=== PATIENT | female | born 1995 | race Caucasian/White ===

== ENCOUNTER 2016-07-24 14:16 | Emergency (ER) | payer OTHER ==
[~2016-07-24] VITALS: Ht 154.9 cm; Wt 61.0 kg
[~2016-07-24 14:16] MED LIST: ACYC800T57 PO; IBUP-1542 PO
[2016-07-24 14:30] VITALS: Ht 154.9 cm; Wt 61.0 kg
[2016-07-24] MEDS ORDERED: METO10TA92 PO (16:39)
--- NOTE | 2016-07-24 16:47 | ERD ---
ER Documentation Chief Complaint Date/Time DATE: 07/24/16 TIME: 16:44 Chief Complaint vomiting today HPI 21-year-old female who is approximately 3 months is complaining of vomiting since this morning. Patient stated that she had successful vomiting today, last episode was about 4 hours ago. She has frequent nausea vomiting during her , was given prescription of antinausea medications but does not remember the name. Patient stated the medication had not helped, and she did not take any today. Patient also complaining of on-and-off dysuria for the last 1 month. She has slight suprapubic pressure and dysuria today. Denies fever or chills. Denies abdominal pain or diarrhea. Denies vaginal bleeding. Patient is , RONEY 01/05/2017. ROS All systems reviewed and are negative except as per history of present illness. Medications Home Meds Active Scripts Metoclopramide* (Reglan*) 10 Mg Tablet, 10 MG PO Q6 Y for NAUSEA AND/OR VOMITING , #10 TAB Prov:GURPREET BROWN [employer] 07/24/16 Ibuprofen* (Motrin*) 600 Mg Tab, 600 MG PO Q6H Y for PAIN AND OR ELEVATED TEMP, #30 TAB Prov:LAVONNE WISEMAN MD 05/06/15 Acyclovir* (Zovirax*) 800 Mg Tablet, 800 MG PO 5 TIMES DAILY for 7 Days, TAB Prov:LAVONNE WISEMAN MD 05/06/15 Allergies Allergies: Coded Allergies: No Known Allergy (Unverified , 10/09/14) PMhx/Soc Medical and Surgical Hx: pt denies Medical Hx History of Surgery: No Anesthesia Reaction: No Hx Neurological Disorder: No Hx Respiratory Disorders: No Hx Cardiac Disorders: No Hx Psychiatric Problems: No Hx Miscellaneous Medical Probl: No Hx Alcohol Use: No Hx Substance Use: No Hx Tobacco Use: No Physical Exam Vitals Vital Signs Date Time Temp Pulse Resp B/P Pulse Ox O2 Delivery O2 Flow Rate FiO2 07/24/16 14:30 99.7 113 18 113/64 98 Physical Exam General: Well-developed, well-nourished, conscious and coherent, in no distress Skin: Warm and dry without rash, good texture and turgor Head: Normocephalic without evidence of trauma Eyes: Sclera and conjunctivae normal; pupils equal, round, and reactive to light; extraocular movements are intact Neck: Supple without meningismus or adenopathy. Carotids are equal. Trachea midline. No bruits or JVD Chest: Normal AP diameter. Good expansion without retractions. Nontender. Lungs are clear to auscultate bilaterally with good tidal volume Heart: Regular rate and rhythm. No murmur, rub, or gallops heard Abdomen: Soft and nontender without masses, guarding, or rebound. Bowel sounds are active. No hepatosplenomegaly Back: Without spinal or CVA tenderness Pelvis: Nontender to palpation and stable to compression Extremities: Full range of motion. Good strength bilaterally. No clubbing, cyanosis, or edema. Peripheral pulses are intact. Sensation intact Neuro: Alert and oriented 4, GCS 15. Cranial nerves grossly intact. Motor and sensory exams nonfocal. Moves all extremities. Speech clear. Gait normal Results 24 hrs Laboratory Tests Test 07/24/16 17:06 Bedside Urine pH (LAB) 6.0 Bedside Urine Protein (LAB) Trace Bedside Urine Glucose (UA) Negative Bedside Urine Ketones (LAB) 4+ Bedside Urine Blood Negative Bedside Urine Nitrite (LAB) Negative Bedside Urine Leukocyte Esterase (L Negative Procedures/MDM Well-appearing 21-year-old female who is approximately 3 months is complaining of nausea vomiting since this morning. Her last episode of vomiting was 4 hours ago, she is able to maintain p.o. fluid challenge. I feel patient at this time can be managed outpatient. She reports that the antinausea medication given to her by her PCP did not work, I suspect that she was given prescription of Zofran, I will give her a prescription of Reglan to help with her nausea vomiting. Patient advised to increase fluid intake I home. Patient also reports intermittent dysuria for the past 1 month. Urine dip is negative for leukocyte or nitrite, negative for urinary tract infection. She does have 4+ ketones and trace protein, likely due to dehydration. Again I emphasized importance of p.o. fluid intake with the patient. Patient appears well, stable for discharge and outpatient management. Medical decision making shared with patient and family. Education provided to patient and family. Patient and family expressed understanding of the plan. Medications on discharge: Reglan. Follow-up: Primary care provider in 2-3 days or return to ED if worse. Departure Diagnosis: Primary Impression: Vomiting during Condition: Good Patient Instructions: Hyperemesis Gravidarum Referrals: COMMUNITY CLINICS YOU HAVE RECEIVED A MEDICAL SCREENING EXAM AND THE RESULTS INDICATE THAT YOU DO NOT HAVE A CONDITION THAT REQUIRES URGENT TREATMENT IN THE EMERGENCY DEPARTMENT. FURTHER EVALUATION AND TREATMENT OF YOUR CONDITION CAN WAIT UNTIL YOU ARE SEEN IN YOUR DOCTORS OFFICE WITHIN THE NEXT 1-2 DAYS. IT IS YOUR RESPONSIBILITY TO MAKE AN APPOINTMENT FOR FOLOW-UP CARE. IF YOU HAVE A PRIMARY DOCTOR --you should call your primary doctor and schedule an appointment IF YOU DO NOT HAVE A PRIMARY DOCTOR YOU CAN CALL OUR PHYSICIAN REFERRAL HOTLINE AT IF YOU CAN NOT AFFORD TO SEE A PHYSICIAN YOU CAN CHOSE FROM THE FOLLOWING [facility] [address] [facility] [facility] [address] [facility] [facility] [address] [facility] [facility] [address] [facility] [address] [facility] [facility] [address] [employer] [place] [id number] [facility] [address] [place], [place] [phone] [address]ABUSLEME HENRI [address] [place], [place] [phone] DR. CHOE APTOS [address] [place], [place] [phone] ROSITA [address]ORDILLO [address] [facility], [address] [address] [address] [address] [place], [place] [phone] [facility] [address] [place], [place] [phone] [address] [facility] [id number] - [address] PETIT, L[place] [address] [facility] [phone] PAT, [place] [address] [facility]. [address], [facility] [address] [address] [facility] [address] [place] [address] Additional Instructions: Call your primary care doctor TOMORROW for an appointment during the next 2-3 days.See the doctor sooner or return here if your condition worsens before your appointment time. GURPREET BROWN NP July 24, 2016 16:47
[2016-07-24 17:04] LABS: URINE BLOOD (Dip) POC Negative (NEGATIVE)
== END 2016-07-24 19:33 | disposition home or self-care (01) ==
LOC: FTE 14:16
DX: O21.9 Vomiting of pregnancy, unspecified (principal); Z3A.00 Weeks of gestation of pregnancy not specified
CPT/HCPCS: 81003; Z7502; 99283

== ENCOUNTER 2016-11-20 15:08 | Emergency (ER) | payer OTHER ==
[~2016-11-20] VITALS: Ht 167.6 cm; Wt 69.5 kg
[~2016-11-20 15:08] MED LIST changes: +METO10TA92 PO
[2016-11-20 15:13] VITALS: Ht 167.6 cm; Wt 69.5 kg
[2016-11-20] MEDS ORDERED: ACETAMINOPHEN 500 MG TAB PO STA (15:58)
[2016-11-20] MEDS ORDERED: LIDOCAINE 1% (MDV) 20 ML INJ SC ONE (16:00)
--- NOTE | 2016-11-20 16:09 | ERD ---
ER Documentation Chief Complaint Date/Time DATE: 11/20/16 TIME: 16:02 Chief Complaint abscess top of buttocks area x 3 days, denies ap or bleeding 33wks HPI There is a 21-year-old female who presents the emergency department today complaining of an abscess on the top of her buttocks for the past 3 days. States she has not taken any medication for the pain because she was told that it was bad in . States she is approximately 33-34 weeks . States that she think she had a fever last night. States that she had the same thing when she was with her last child. ROS All systems reviewed and are negative except as per history of present illness. Medications Home Meds Active Scripts Cephalexin* (Keflex*) 500 Mg Capsule, 500 MG PO QID for 7 Days, CAP Prov:AKIL LIZAMA PA-C 11/20/16 Acetaminophen* (Tylophen*) 500 Mg Capsule, 1 CAP PO Q6H Y for PAIN AND OR ELEVATED TEMP, #30 CAP Prov:AKIL LIZAMA PA-C 11/20/16 Metoclopramide* (Reglan*) 10 Mg Tablet, 10 MG PO Q6 Y for NAUSEA AND/OR VOMITING , #10 TAB Prov:GURPREET BROWN NP 07/24/16 Ibuprofen* (Motrin*) 600 Mg Tab, 600 MG PO Q6H Y for PAIN AND OR ELEVATED TEMP, #30 TAB Prov:LAVONNE WISEMAN MD 05/06/15 Acyclovir* (Zovirax*) 800 Mg Tablet, 800 MG PO 5 TIMES DAILY for 7 Days, TAB Prov:LAVONNE WISEMAN MD 05/06/15 Allergies Allergies: Coded Allergies: No Known Allergy (Unverified , 10/09/14) PMhx/Soc History of Surgery: No Anesthesia Reaction: No Hx Neurological Disorder: No Hx Respiratory Disorders: No Hx Cardiac Disorders: No Hx Psychiatric Problems: No Hx Miscellaneous Medical Probl: No Hx Alcohol Use: No Hx Substance Use: No Hx Tobacco Use: No Physical Exam Vitals Vital Signs Date Time Temp Pulse Resp B/P Pulse Ox O2 Delivery O2 Flow Rate FiO2 11/20/16 15:13 99.1 117 18 111/57 99 Physical Exam Const: NAD Head: Atraumatic Eyes: Normal Conjunctiva ENT: Normal External Ears, Nose and Mouth. Neck: Full range of motion..~ No meningismus. Resp: Clear to auscultation bilaterally Cardio: Regular rate and rhythm, no murmurs Abd: Soft, non tender, non distended. Normal bowel sounds Skin: left side gluteal fold with evidence of 1.5 cm abscess with slight erythema and fluctuance Back: No midline or flank tenderness Ext: No cyanosis, or edema Neur: Awake and alert Psych: Normal Mood and Affect Results 24 hrs Current Medications Medications (Trade) Dose Ordered Sig/Senait Route PRN Reason Start Time Stop Time Status Last Admin Dose Admin Acetaminophen (Tylenol Tab) 500 mg ONCE STAT PO 11/20/16 15:58 11/20/16 16:00 DC 11/20/16 16:02 Lidocaine (Xylocaine 1% (Mdv) 20 ml) 20 ml ONCE ONCE SC 11/20/16 16:00 11/20/16 16:01 DC Procedures/MDM There is a 21-year-old female who presents to the emergency department today for an abscess on the left side of her buttocks for the past 3 daysLikely pilonidal cyst.. On physical exam patient has a 1.5 cm abscess along her gluteal fold. Patient had indicated that she thought she had a fever last night and given the patient is I do feel that it may be beneficial to try to open up the area to drain it. I explained the risks and benefits of the procedure and the patient agreed to proceed. The wound was cleaned in the usual sterile fashion. Patient tolerated the procedure well and there were no complications.A large amount of purulent foul-smelling discharge was drained from the patient abscess Abscess Incision and Drainage with irrigation by me: Location: buttock Anesthesia: 3 cc lidocaine Technique: [Irrigated. Disrupted loculations w/ instrumentation ] Packing: Iodoform Complications: [Neurovascularly intact post procedure] Scar minimization instructions given. Patient's skin symptoms have stabilized while they have been evaluated in the department and are appropriate for outpatient care and work up. Patient is afebrile and otherwise well-appearing.Exam and w/u not consistent w/ sepsis, deep space infection, or foreign body. Patient was given Tylenol here in the emergency department. She will given a prescription for Tylenol for home. I will also give her a prescription for Keflex only given that she is in her third trimester.She is instructed to follow -up in 48 hours for a wound check. At this time the patient is stable for discharge and outpatient management. Patient should follow up with their PCP in the next 1-2 days. They may return to the emergency department sooner for any persistent or worsening of symptoms. Patient understood and agreed with the plan. Departure Diagnosis: Primary Impression: Abscess Condition: AKIL Pineda PA-C Nov 20, 2016 16:09
[2016-11-20] MEDS ORDERED: ACET500C5 PO (17:20)
[2016-11-20] MEDS ORDERED: CEPH-443 PO (17:21)
== END 2016-11-20 17:27 | disposition home or self-care (01) ==
LOC: FTE 15:08
DX: L02.31 Cutaneous abscess of buttock (principal)
CPT/HCPCS: 10061; Z7502; Z7610

== ENCOUNTER 2016-12-21 17:14 | Inpatient (IN) | payer OTHER ==
[~2016-12-21] VITALS: Ht 160 cm; Wt 74.0 kg
[2016-12-21 05:00] VITALS: BP 119/61; RESP 19
[~2016-12-21 17:14] MED LIST changes: +ACET500C5 PO; +CEPH-443 PO
[2016-12-21 17:49] VITALS: BP 117/78; PULSE 92; RESP 18
[2016-12-21 17:50] VITALS: Ht 160 cm; Wt 74.0 kg
[2016-12-21] MEDS: LACTATED RINGER'S 1,000 ML IV SCH ×3 (17:51→20:11)
[2016-12-21] MEDS ORDERED: CARBOPROST 250 MCG INJ IM PRN (18:00)
[2016-12-21] MEDS ORDERED: LACTATED RINGER'S 1,000 ML IV PRN (18:00)
[2016-12-21] MEDS ORDERED: METHYLERGONOVINE 0.2 MG INJ IM PRN (18:00)
[2016-12-21] MEDS ORDERED: LIDOCAINE 1% (MPF) 30 ML INJ INJ PRN (18:00)
[2016-12-21] MEDS ORDERED: IBUPROFEN 600 MG TAB PO PRN (18:00)
[2016-12-21] MEDS ORDERED: OXYTOCIN 30 UNITS/LR 500 ML IV SCH ×2 (18:00)
[2016-12-21] MEDS ORDERED: MISOPROSTOL 200 MCG TAB PR PRN (18:00)
[2016-12-21] MEDS ORDERED: OXYTOCIN 30 UNITS/LR 500 ML IV PRN (18:00)
[2016-12-21] MEDS ORDERED: BUTORPHANOL 2 MG INJ IV PRN ×2 (18:00)
[2016-12-21] MEDS ORDERED: FERR256T PO (18:04)
[2016-12-21] MEDS ORDERED: PREN-93 PO (18:04)
[2016-12-21 18:12] LABS: BASOPHILS % 0.1 % (0.0-2.0); EOSINOPHILS # 0.1 10^3/ul (0.0-0.5); EOSINOPHILS % 0.8 % (0.0-7.0); HEMATOCRIT 32.4 % (37.0-47.0); HEMOGLOBIN 10.3 g/dl (12.0-16.0); LYMPHOCYTES # 2.1 10^3/ul (0.8-2.9); LYMPHOCYTES % 24.2 % (18.0-55.0); MEAN CORPUSCULAR HEMOGLOBIN 28.1 pg (29.0-33.0); MEAN CORPUSCULAR HGB CONC 31.8 g/dl (32.0-37.0); MEAN CORPUSCULAR VOLUME 88.5 fl (72.0-104.0); MEAN PLATELET VOLUME 12.5 fl (7.4-10.4); MONOCYTE # 0.6 10^3/ul (0.3-0.9); MONOCYTES % 6.5 % (0.0-13.0); NEUTROPHIL # 5.9 10^3/ul (1.6-7.5); NEUTROPHILS % 68.1 % (30.0-74.0); PLATELET COUNT 208 10^3/UL (140-415); RED BLOOD COUNT 3.66 10^6/ul (4.20-5.40); RED CELL DISTRIBUTION WIDTH 13.3 % (11.5-14.5); WHITE BLOOD COUNT 8.6 10^3/ul (4.8-10.8)
[2016-12-21] MEDS: OXYTOCIN 30 UNITS/LR 500 ML IV SCH ×2 (18:24→22:20)
[2016-12-21 18:27] LABS: INR 0.94; PROTIME 12.6 Sec (12.2-14.2)
[2016-12-21] MEDS ORDERED: TERBUTALINE 1 ML ONE (18:42)
[2016-12-21 18:44] LABS: ALANINE AMINOTRANSFERASE 23 IU/L (13-69); ALBUMIN 2.9 g/dl (3.3-4.9); ALBUMIN/GLOBULIN RATIO 0.85; ALKALINE PHOSPHATASE 167 IU/L (42-121); ANION GAP 13 (8-16); ASPARTATE AMINO TRANSFERASE 16 IU/L (15-46); BILIRUBIN,INDIRECT 0.2 mg/dl (0-1.1); BILIRUBIN,TOTAL 0.2 mg/dl (0.2-1.3); BLOOD UREA NITROGEN 9 mg/dl (7-20); CALCIUM 9.2 mg/dl (8.4-10.2); CARBON DIOXIDE 22 mmol/L (21-31); CHLORIDE 110 mmol/L (97-110); GLUCOSE 112 mg/dl (70-220); POTASSIUM 3.8 mmol/L (3.5-5.1); SODIUM 141 mmol/L (135-144); TOTAL PROTEIN 6.3 g/dl (6.1-8.1)
[2016-12-21] MEDS ORDERED: TERBUTALINE 1 MG/ML INJ SC ONE (19:00)
[2016-12-22] MEDS ORDERED: FENTAnyl 2MCG/ML-ROPIV 0.2% 100 ML BAG EPI SCH (00:30)
[2016-12-22] MEDS ORDERED: ONDANSETRON 4 MG INJ IV PRN (00:30)
[2016-12-22] MEDS ORDERED: DIPHENHYDRAMINE 50 MG INJ IV PRN (00:30)
[2016-12-22] MEDS ORDERED: NALOXONE (0.4 MG/ML) INJ IV PRN (00:30)
[2016-12-22] MEDS: LACTATED RINGER'S 1,000 ML IV SCH (01:21)
[2016-12-22] MEDS: LACTATED RINGER'S 1,000 ML IV* SCH ×2 (01:51→10:24)
[2016-12-22] MEDS: OXYTOCIN 30 UNITS/LR 500 ML IV SCH ×2 (01:51→06:41)
[2016-12-22] MEDS ORDERED: LANOLIN 7 GM TUBE TOP PRN (02:00)
[2016-12-22] MEDS ORDERED: BENZOCAINE 20% 56 ML SPRAY TOP PRN (02:00)
[2016-12-22] MEDS ORDERED: METHYLERGONOVINE 0.2 MG INJ IM PRN (02:00)
[2016-12-22] MEDS ORDERED: ACETAMINOPHEN 325 MG TAB PO PRN (02:00)
[2016-12-22] MEDS ORDERED: CARBOPROST 250 MCG INJ IM PRN (02:00)
[2016-12-22] MEDS ORDERED: WITCH HAZEL/GLYCERIN PAD PR PRN (02:00)
[2016-12-22] MEDS ORDERED: MAGNESIUM HYDROXIDE 30ML CUP PO PRN (02:00)
[2016-12-22] MEDS ORDERED: HYDROCODONE/APAP (5/325) TAB PO PRN ×2 (02:00)
[2016-12-22] MEDS ORDERED: MISOPROSTOL 200 MCG TAB PR PRN (02:00)
[2016-12-22] MEDS ORDERED: OXYTOCIN 30 UNITS/LR 500 ML IV PRN (02:00)
[2016-12-22 03:30] VITALS: BP 121/62; PULSE 80; RESP 19
[2016-12-22] MEDS: IBUPROFEN 600 MG TAB PO SCH ×3 (05:45→18:25)
--- NOTE | 2016-12-22 06:04 | PREOPHP ---
DATE OF ADMISSION: 12/21/2016 HISTORY OF PRESENT ILLNESS: This is a 21-year-old lady, 2, para 1, EDC January 05, 2017, at 38 weeks' , admitted for induction for asymmetric IUGR as advised by Dr. Gaitan, the perinatologist. She had care at my [place] office and the care was complicated by a asymmetric IUGR and had been followed by Dr. Gaitan. PAST MEDICAL HISTORY: No history of diabetes, TB, asthma. ALLERGIES: NONE. SOCIAL HISTORY: Patient does not smoke. She does not drink. She does not take any drugs except her iron and vitamins. OBSTETRIC HISTORY: She had menarche at the age of 13, every 28 days interval, 3-4 days' duration and moderate in amount. FAMILY HISTORY: Lung cancer . GYNECOLOGICAL HISTORY: She is 2, para 1. Her 1st delivery in 2012 at 40 weeks. Baby weighed 6 pounds. REVIEW OF SYSTEMS: CARDIOVASCULAR: No chest pain. RESPIRATORY: No cough. GASTROINTESTINAL: No diarrhea, no vomiting. GENITOURINARY: No dysuria. PHYSICAL EXAMINATION: GENERAL APPEARANCE: Reveals a conscious, coherent lady, and in no acute distress. VITAL SIGNS: Her blood pressure 120/80, pulse rate 80 per minute, respirations 16 per minute. BREASTS, HEART AND LUNGS: Within normal limits. ABDOMEN: Soft. Fundic height 35 cm. heart tones 140 per minute. PELVIC: Exam at 9:55 p.m. done by [facility] December 21, 2016, revealed the cervix to be 4-5 cm dilated, 100 percent effaced, station 0, in cephalic presentation with the bag of water intact. EXTREMITIES: No pedal edema. ADMITTING DIAGNOSIS: Thirty-eight weeks intrauterine in the early labor. PLAN: The plans of delivery were explained to the patient. Asked to go for vaginal delivery. The risk, benefit, and alternative to vaginal delivery were explained to the patient. The risks of was explained. She chose to go for vaginal delivery. So, she had artificial rupture of membranes, scalp electrode, IUPC was inserted. She was continued on Pitocin augmentation and the patient progressed well. She received a labor epidural. Dictated By: Sheila Dunham MD /rosalio/marty /Document#: [id number]
--- NOTE | 2016-12-22 06:10 | OPR ---
DATE OF OPERATION: 12/22/2016 INDICATIONS: This is a 21-year-old lady, 2, para 1, EDC January 05, 2017 at 38 weeks' , admitted in early labor and for Pitocin augmentation. HISTORY OF PRESENT ILLNESS: See dictated history and physical. PHYSICAL EXAMINATION: See dictated history and physical. ADMITTING DIAGNOSES: 1. Thirty-eight weeks' intrauterine in early labor. 2. Progress of labor. See dictated history and physical. OPERATIVE PROCEDURE: The patient progressed well. She received labor epidural. She had Pitocin augmentation. I was called by the nurse after the baby was born. I was in the hospital and according to the nurse, the patient just pushed the baby out. She had a precipitous delivery at 1:32 a.m., December 22, 2016. Delivered a healthy baby girl, 8 and 9, weighing 5 pounds 7 ounces, 24 60 g, 18 inches long, over an intact perineum. The placenta was delivered spontaneously by me. The cervix, vagina, vulva were free of hematoma and exploration of the uterus revealed no membranes left behind. The patient tolerated the delivery well. ESTIMATED BLOOD LOSS: Less than 500 cc. Vital signs were stable during and after the delivery. Dictated By: Sheila Dunham MD /[email or web address]/marty /Document#: [id number]
[2016-12-22 07:45] VITALS: BP 117/67; PULSE 76; RESP 18
[2016-12-22] MEDS: SENNA/DOCUSATE NA (8.6MG/50MG) TAB PO SCH ×2 (09:53→20:23)
[2016-12-22 12:12] LABS: BASOPHILS % 0.1 % (0.0-2.0); EOSINOPHILS % 0.1 % (0.0-7.0); HEMATOCRIT 30.9 % (37.0-47.0); HEMOGLOBIN 9.9 g/dl (12.0-16.0); LYMPHOCYTES % 14.7 % (18.0-55.0); MEAN CORPUSCULAR HEMOGLOBIN 27.9 pg (29.0-33.0); MEAN PLATELET VOLUME 12.5 fl (7.4-10.4); MONOCYTE # 0.8 10^3/ul (0.3-0.9); MONOCYTES % 5.8 % (0.0-13.0); NEUTROPHIL # 10.8 10^3/ul (1.6-7.5); NEUTROPHILS % 78.9 % (30.0-74.0); PLATELET COUNT 167 10^3/UL (140-415); RED BLOOD COUNT 3.55 10^6/ul (4.20-5.40); RED CELL DISTRIBUTION WIDTH 13.4 % (11.5-14.5); WHITE BLOOD COUNT 13.7 10^3/ul (4.8-10.8)
[2016-12-22 15:42] VITALS: BP 105/56; PULSE 67; RESP 20
[2016-12-22 15:43] VITALS: BP 106/55; PULSE 65; RESP 18
[2016-12-22 19:50] VITALS: BP 107/58; PULSE 79; RESP 18
[2016-12-23] VITALS: BP 100/56; PULSE 72; RESP 18
[2016-12-23] MEDS: IBUPROFEN 600 MG TAB PO SCH ×4 (00:17→23:45)
[2016-12-23] MEDS: LACTATED RINGER'S 1,000 ML IV* SCH ×3 (01:51→17:51)
[2016-12-23 04:15] VITALS: BP 101/61; PULSE 70
[2016-12-23 08:00] VITALS: BP 117/72; PULSE 72
[2016-12-23 09:13] LABS: BASOPHILS % 0.2 % (0.0-2.0); EOSINOPHILS # 0.1 10^3/ul (0.0-0.5); EOSINOPHILS % 1.4 % (0.0-7.0); HEMATOCRIT 30.9 % (37.0-47.0); HEMOGLOBIN 9.8 g/dl (12.0-16.0); LYMPHOCYTES # 1.9 10^3/ul (0.8-2.9); LYMPHOCYTES % 20.6 % (18.0-55.0); MEAN CORPUSCULAR HEMOGLOBIN 28.5 pg (29.0-33.0); MEAN CORPUSCULAR HGB CONC 31.7 g/dl (32.0-37.0); MEAN CORPUSCULAR VOLUME 89.8 fl (72.0-104.0); MEAN PLATELET VOLUME 11.8 fl (7.4-10.4); MONOCYTE # 0.4 10^3/ul (0.3-0.9); MONOCYTES % 4.4 % (0.0-13.0); NEUTROPHIL # 6.8 10^3/ul (1.6-7.5); NEUTROPHILS % 72.9 % (30.0-74.0); PLATELET COUNT 162 10^3/UL (140-415); RED BLOOD COUNT 3.44 10^6/ul (4.20-5.40); RED CELL DISTRIBUTION WIDTH 13.2 % (11.5-14.5); WHITE BLOOD COUNT 9.4 10^3/ul (4.8-10.8)
[2016-12-23] MEDS: SENNA/DOCUSATE NA (8.6MG/50MG) TAB PO SCH ×2 (09:46→21:00)
[2016-12-23 16:00] VITALS: BP 114/69; PULSE 97
[2016-12-23 19:45] VITALS: PULSE 78; RESP 18
[2016-12-24] MEDS: LACTATED RINGER'S 1,000 ML IV* SCH (01:51)
[2016-12-24 04:20] VITALS: BP 101/58; PULSE 73; RESP 18
[2016-12-24] MEDS: IBUPROFEN 600 MG TAB PO SCH ×2 (05:38→12:02)
[2016-12-24] MEDS: SENNA/DOCUSATE NA (8.6MG/50MG) TAB PO SCH (08:23)
[2016-12-24 08:24] VITALS: BP 115/68; PULSE 76
[2016-12-24] MEDS ORDERED: MEASLES,MUMPS,RUBELLA VACCINE INJ SC* ONE (09:00)
[2016-12-24 14:18] LABS: BASOPHILS % 0.3 % (0.0-2.0); EOSINOPHILS # 0.3 10^3/ul (0.0-0.5); EOSINOPHILS % 2.3 % (0.0-7.0); HEMATOCRIT 33.8 % (37.0-47.0); HEMOGLOBIN 10.7 g/dl (12.0-16.0); LYMPHOCYTES # 2.1 10^3/ul (0.8-2.9); MEAN CORPUSCULAR HEMOGLOBIN 28.2 pg (29.0-33.0); MEAN CORPUSCULAR HGB CONC 31.7 g/dl (32.0-37.0); MEAN CORPUSCULAR VOLUME 88.9 fl (72.0-104.0); MEAN PLATELET VOLUME 11.7 fl (7.4-10.4); MONOCYTE # 0.6 10^3/ul (0.3-0.9); MONOCYTES % 5.2 % (0.0-13.0); NEUTROPHIL # 8.6 10^3/ul (1.6-7.5); NEUTROPHILS % 73.9 % (30.0-74.0); PLATELET COUNT 207 10^3/UL (140-415); RED CELL DISTRIBUTION WIDTH 13.5 % (11.5-14.5); WHITE BLOOD COUNT 11.7 10^3/ul (4.8-10.8)
== END 2016-12-24 17:10 | disposition home or self-care (01) | DRG 775 ==
LOC: L-D 17:14 → PP1 12-22 03:28
PROVIDERS: ADMIT Obstetrics & Gynecology; ATTEND Obstetrics & Gynecology
PROC: 10E0XZZ Delivery of Products of Conception, External Approach (ICD-10-PCS; principal; 2016-12-22)
PROC: 3E0P3VZ Introduction of Hormone into Female Reproductive, Percutaneous Approach (ICD-10-PCS; 2016-12-22)
DX: O80 Encounter for full-term uncomplicated delivery (principal); Z37.0 Single live birth; Z3A.37 37 weeks gestation of pregnancy
CPT/HCPCS: 62319; 80053; 85025; 85610; 85730; 86592; 86900; 86901; 87340; 88307; J2590; J3010; J3105; J7120

== ENCOUNTER 2017-04-09 20:24 | Emergency (ER) | END 2017-04-09 21:20 | disposition home or self-care (01) ==

== ENCOUNTER 2017-10-31 00:28 | Emergency (ER) | END 2017-10-31 04:11 | disposition home or self-care (01) ==

== ENCOUNTER 2017-11-01 19:37 | Emergency (ER) | END 2017-11-01 21:07 | disposition home or self-care (01) ==

== ENCOUNTER 2017-11-05 12:41 | Emergency (ER) | END 2017-11-05 14:10 | disposition home or self-care (01) ==